=== PATIENT | male | born 1930 | race African-American/Black ===

== ENCOUNTER → 2019-09-10 | Outpatient (CLI) | payer OTHER, BC ==
[~2019-09-10] VITALS: Ht 162.6 cm; Wt 71.2 kg
[~2019-09-10] MED LIST: CARBIDOPA-LEVO1 EAC7 PO; FENOFIBRATE145 M1 PO; LINZESS145 MCG PO; MUCINEX600 MG PO; PERFOROMIS20 MCG/2 M INH; PRILOSEC OTC20 MG PO; PULMICORT0.25 MG/2 INH; TRIAMTERENE/HCT1 CA1 PO
--- NOTE | 2019-09-13 08:50 | P ---
[facility] [place] [address] PROCEDURE REPORT Name: DANE BERG Room #: REG [facility]#: [id number] Admission: 09/10/19 Attend Phys: Salvador Rooney MD Discharge: Date of : [birth year] Report #: [id number] THIS REPORT FOR: cc: Werner Merino MD, Elliott L. MD Thesing, John A. MD ~ CC: Werner Mabry MD DATE OF SERVICE: 09/10/2019 OUTPATIENT UPPER ENDOSCOPY REPORT BRIEF HISTORY: The patient is an 88-year-old male who has a history of Parkinson disease and is having more difficulty with swallowing. He has difficulty with solids in particular for pills and he is also experiencing coughing with swallowing. PREOPERATIVE DIAGNOSIS: Dysphagia and possible aspiration. POSTOPERATIVE DIAGNOSES: 1. Mild diffuse erythematous gastritis. 2. Multiple benign appearing gastric polyps. 3. A 2-3 cm sliding type hiatus hernia. 4. Dysphagia. MEDICATIONS: Deep sedation with propofol per anesthesia. SPECIMENS: 1. Biopsies of gastritis. 2. Random biopsies of gastric polyps. ESTIMATED BLOOD LOSS: 3 mL. PROCEDURE: EGD with biopsy. FINDINGS: Prior to propofol sedation, procedure of upper endoscopy discussed with the patient as well as potential risks and its complications. He indicates he understands and desires to proceed. DESCRIPTION OF PROCEDURE: With the patient in left lateral decubitus position, the Olympus video endoscope was inserted in the cervical esophagus under direct vision without difficulty. Examination of this organ through its entire length revealed normal esophageal mucosa down the squamocolumnar junction. [facility] [address] [place] [address] PROCEDURE REPORT Name: DANE BERG Room #: REG [facility].#: [id number] Admission: 09/10/19 Attend Phys: Salvador Rooney MD Discharge: Date of : [birth year] Report #: [id number] Squamocolumnar junction was inspected and noted to be unremarkable. No evidence of ulcers, erosions or Jay mucosa. In addition, there was approximately 3 cm sliding type hiatus hernia. Mucosa of hernia was unremarkable. The scope was advanced in the stomach, was examined on end view as well as retroflexed views. There was patchy erythema in the antrum consistent with mild gastritis. Biopsies were obtained. Upon examination of the proximal stomach and upon retroflexion, he was noted to have intact mucosa throughout the stomach. There were multiple polyps seen primarily in the fundus and body of the stomach. These ranged in size from about 3-10 mm. They had the appearance of benign fundic gland polyps. Multiple random biopsies were obtained. It is also noted there were a few polyps within the hiatus hernia, which had a typical fundic gland appearance as well. The pylorus, duodenal bulb and postbulbar duodenal sweep were inspected and noted to be unremarkable. At that point, the scope was slowly withdrawn and careful circumferential views confirmed the above findings. The patient tolerated the procedure well. Subsequently, he was dilated with passage of a 60-Kosovan Bowles dilator. There was no resistance. 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 CONDITION OF THE PATIENT UPON DISCHARGE: Following procedure, the patient drowsy and prepared for colonoscopy. INSTRUCTIONS TO THE PATIENT AND FAMILY AT THE TIME OF DISCHARGE: We will see how he does following dilation. He is to return at a later date for a video swallow to evaluate for possibility of aspiration. Proceed with colonoscopy at this time. <ELECTRONICALLY SIGNED> By: Salvador Rooney MD 09/13/19 0850 [phone] Salvador Rooney MD /nt
--- NOTE | 2019-09-13 08:50 | P ---
[facility] [place] [address] PROCEDURE REPORT Name: DANE BERG Room #: REG [facility].#: [id number] Admission: 09/10/19 Attend Phys: Salvador Rooney MD Discharge: Date of : [birth year] Report #: [id number] THIS REPORT FOR: cc: Werner Merino MD, Elliott L. MD Thesing, John A. MD ~ CC: Werner Mabry MD DATE OF SERVICE: 09/10/2019 OUTPATIENT COLONOSCOPY REPORT BRIEF HISTORY: The patient is an 88-year-old male with a history of colon cancer, status post right hemicolectomy. He has Parkinson disease and in recent months has marked change in bowel habits. PREOPERATIVE DIAGNOSIS: History of colon cancer and modification of bowel habits. POSTOPERATIVE DIAGNOSIS: Normal colonoscopy to ileocolonic anastomosis. MEDICATIONS: Deep sedation with propofol per anesthesia. SPECIMEN: None. ESTIMATED BLOOD LOSS: None. PROCEDURE: Colonoscopy to distal ileum. FINDINGS: Prior to propofol sedation, procedure of colonoscopy was reviewed with the patient, as well as potential risks and its complications. He indicates he understands and desires to proceed. DESCRIPTION OF PROCEDURE: With the patient in left lateral decubitus position, digital examination was completed, which revealed no abnormalities. Subsequently, the Olympus video colonoscope was introduced into the rectum, advanced under direct vision to the proximal colon. This was done with minimal difficulty. The ileocolonic anastomosis was identified. It was noted to be unremarkable. There is no evidence of neoplastic disease. The distal segment of the terminal ileum was inspected and noted to be unremarkable. At that point, the scope was slowly withdrawn and careful circumferential views were obtained. Upon slow withdrawal of the scope, the prep was excellent. The mucosa was within normal limits, normal vascular pattern, normal light reflex. [facility] [address] [place] [address] PROCEDURE REPORT Name: OTISDANE Room #: REG [facility]#: [id number] Admission: 09/10/19 Attend Phys: Salvador Rooney MD Discharge: Date of : [birth year] Report #: [id number] As we withdrew the scope, no neoplastic inflammatory changes were seen. No obstructing lesions were seen. He had a normal endoscopic examination of the colon. The scope was withdrawn in the rectum, no abnormalities were seen. Upon retroflexion, no abnormalities were seen. Scope was withdrawn. The patient tolerated the procedure well.. CONDITION OF THE PATIENT UPON DISCHARGE: Following procedure, the patient drowsy and will be discharged home when fully ambulatory. INSTRUCTIONS TO THE PATIENT AND FAMILY AT THE TIME OF DISCHARGE: As far as his colon cancer, there was no evidence of neoplastic disease. At this point in life, he would not likely benefit from continued routine colonoscopy. As far as his change in bowel habits, I do not see any obstructing lesions. He has been on Linzess. Consider use of MiraLax or higher dose of Linzess. We will discuss further with the patient and his . If he continues to have difficulties, he is to see me in followup in the office. His constipation may be related to his Parkinson's and Parkinson's medications. <ELECTRONICALLY SIGNED> By: Salvador Rooney MD 09/13/19 0850 1 Salvador Rooney MD /nt
--- NOTE | 2019-09-13 17:07 | PATH ---
[facility] [place] [address] PATHOLOGY RPT PROCEDURE Name: DANE BERG Room #: REG [facility].#: [id number] Admission: 09/10/19 Date of : [birth year] Discharge: Report #: [id number] Path Case #: [id number] [facility] Accession Number: [id number] . 01 Material submitted: . PART A: stomach - BX OF GASTRITIS PART B: stomach - BX OF GASTRIC POLYP . 01 Clinical history: . Dysphagia, change in bowel habit, history of colon cancer . 02 Diagnosis: A. Gastric mucosa, gastritis, rule out H. pylori, endoscopic biopsy: - Mild reactive gastropathy. - Negative for intestinal metaplasia or atrophy. - Negative for Helicobacter pylori (properly controlled immunohistochemical stain performed). . B. Polyp, gastric polyp, endoscopic biopsy: - Fundic gland polyp. - Negative for dysplasia. (IUV:pit 09/13/2019) QTP 09/13/2019 1531 Local . 02 Electronically signed: . Chela Holden MD, Pathologist NPI- [id number] . 01 Gross description: . A. The specimen is received in formalin labeled "Dane Berg, BX of gastritis rule out H. pylori" and consists of multiple fragments of barrow tissue measuring 1.6 x 0.2 x 0.2 cm in aggregate which are entirely submitted in A1. . B. The specimen is received in formalin labeled "Dane Berg, BX of gastric polyp" and consists of multiple fragments of barrow tissue measuring 1.1 x 0.5 x 0.2 cm in aggregate which are entirely submitted in B1. ([facility]; 09/10/2019) JFQ/DESIRAE 09/10/2019 2201 Local . 02 Pathologist provided ICD-10: K31.9, K31.7 . 02 CPT . 748580, 856546, E42863 Specimen Comment: A courtesy copy of this report has been sent to [phone], [phone] [address] PATHOLOGY RPT PROCEDURE Name: DANE BERG Room #: REG [facility] aPm#: [id number] Admission: 09/10/19 Date of : [birth year] Discharge: Report #: [id number] Path Case #: [id number] Specimen Comment: [id number] Specimen Comment: Report sent to / DR SHELTON Performed at: [address] [facility], [place], [place] [id number] MD Kg Cerrato MD Phone: [phone] Performed at: [address] [id number] MD Chela Holden MD Phone: [phone]
== END | disposition home or self-care (01) ==
LOC: GI 07:09
PROVIDERS: ATTEND Specialist
DX: R19.4 Change in bowel habit (principal); K31.9 Disease of stomach and duodenum, unspecified; K29.70 Gastritis, unspecified, without bleeding; K31.7 Polyp of stomach and duodenum; K44.9 Diaphragmatic hernia without obstruction or gangrene; R13.12 Dysphagia, oropharyngeal phase; Z85.038 Personal history of other malignant neoplasm of large intestine; Z86.010 Personal history of colon polyps; Z98.890 Other specified postprocedural states; Z93.3 Colostomy status; Z79.899 Other long term (current) drug therapy; Z11.59 Encounter for screening for other viral diseases
CPT/HCPCS: 62110; 62900

== ENCOUNTER → 2019-09-13 | Outpatient (CLI) | payer OTHER, BC | LOC: SPEECH 08:29 → RAD 08:29 | PROVIDERS: ATTEND Specialist | DX: R13.13 Dysphagia, pharyngeal phase (principal) ==